=== PATIENT | male | born 1970 | race Caucasian/White ===

== ENCOUNTER 2017-10-08 07:13 | Day surgery (SDC) | payer OTHER ==
[2017-10-06 14:53] VITALS: BMI 27.1
--- NOTE | 2017-10-08 07:05 | HP ---
History & Physical Update - History History: No Change - Physical Physical: No Change - Assessment Assessment: No Change - Plan Plan: No Change (Initial H&P completed on 10/06/17. No new complaints or medications. Here today for elective L4/5 laminectomy.)
[2017-10-08] MEDS ORDERED: CEFAZOLIN 2 GM in DEXTROSE 5%-WATER - 100 ML IVPB ONE (07:28)
[2017-10-08] MEDS ORDERED: oxyCODONE HCL 10 MG SUSTAINED ACTING TABLET PO STA (07:28)
[2017-10-08] MEDS ORDERED: BUPIVACAINE HCL/PF (5 MG/ML) 30 ML VIAL IJ ONE (09:29)
[2017-10-08] MEDS ORDERED: MIDAZOLAM HCL 2 MG/2 ML SINGLE DOSE VIAL ONE ×2 (09:29→11:06)
[2017-10-08] MEDS ORDERED: DEXAMETHASONE SOD PHOSPHATE/PF 10 MG/ML SDV ONE (09:29)
[2017-10-08] MEDS ORDERED: ONDANSETRON 4 MG/2 ML VIAL ONE (10:01)
[2017-10-08] MEDS ORDERED: ceFAZolin SODIUM 1 GM VIAL ONE (10:01)
[2017-10-08] MEDS ORDERED: THROMBIN (BOVINE) 5,000 UNIT VIAL TP ONE ×2 (10:05→11:07)
[2017-10-08] MEDS ORDERED: LIDOCAINE 1%/EPI 1:100000 (20 ML MULTI DOSE VIAL) ONE (10:05)
[2017-10-08] MEDS ORDERED: methylPREDNISolone ACET (DEPO) 40 MG/1 ML VIAL ONE (10:05)
[2017-10-08] MEDS ORDERED: oxyCODONE HCL 5 MG TABLET PO PRN ×2 (11:39)
[2017-10-08] MEDS ORDERED: ONDANSETRON 4 MG/2 ML VIAL IVPUSH PRN (11:39)
[2017-10-08] MEDS ORDERED: LACTATED RINGERS SOLUTION 1,000 ML IV SCH (11:45)
--- NOTE | 2017-10-08 12:28 | OP ---
Operative Note - Note: Operative Date: 10/08/17 Pre-Operative Diagnosis: L4/5 herniated disc, stenosis, radiculopathy Operation: L4/5 discectomy, bilateral laminectomy Post-Operative Diagnosis: Same as Pre-op Surgeon: Goyo Prakash Architectural Examiner: Rashi Núñez Anesthesiologist/BETTING AGENCY COUNTER CLERK: Luz Benjamin Anesthesia: Spinal Specimens Removed: L4/5 disc Estimated Blood Loss (mls): 20 Fluid Volume Replaced (mls): 550 Operative Report Dictated: Yes
--- NOTE | 2017-10-08 12:29 | SURG ---
Surgery Melter Clerk Note Melter Clerk: Rashi Núñez PA-C Date of Service: 10/08/17 Diagnosis: L4/5 herniated disc, spinal stenosis, radiculopathy Procedure: L4/5 discectomy, bilateral laminectomy I was present for the entirety of the operative procedure. For further detail, please refer to operative report. Visit type - Case Type Case Type: Scheduled - New patient This patient is new to me today: Yes Date on this admission: 10/08/17
--- NOTE | 2017-10-08 13:19 | OP ---
DATE OF OPERATION: 10/08/2017 PREOPERATIVE DIAGNOSIS: L4-L5 spinal stenosis. POSTOPERATIVE DIAGNOSIS: L4-L5 spinal stenosis. PROCEDURE PERFORMED: Laminectomy L4-L5. SURGEON: Goyo Prakash MD [employer] [facility] OPERATOR: PAOLO Singleton ESTIMATED BLOOD LOSS: 50 mL. INTRAVENOUS FLUIDS: Per Anesthesia. ANESTHESIA: Spinal/TLIP. COMPLICATIONS: There were none. DISPOSITION: Patient brought to the PACU in stable condition. INDICATIONS FOR SURGERY: The patient is a 47-year-old gentleman who has been suffering from pain from his back down his legs. X-rays and MRI were completed, which noted he had spinal stenosis at L4-L5. He had gone through an exhaustive course of treatment for this which included medications, physical therapy, as well as injections. Unfortunately, his pain continued to persist despite all this. At this point, risks, benefits, and alternatives were discussed, and the patient consented to surgery. OPERATIVE NOTE: Patient was brought to the operating room by the anesthesia staff. After appropriate patient identification was performed, spinal anesthesia was given. A TLIP block was also given. Patient was able to position himself prone onto the OR table. Two needles were placed in his back to akiko off the L4-L5 segment. X-rays taken to confirm this was correct. The needle was removed, and 10 mL of lidocaine with epinephrine was injected into the back at this time. His back was prepped and draped in a sterile manner. At this point, a time-out was completed. An incision was made from the top of L4 down to the bottom of L5. Dissection was carried down to the fascia. The fascia was then split open at this time, and appropriate retractors were then placed in. A spinal needle was placed onto the L4 lamina to akiko off the L4-L5 level. An x-ray was taken to confirm this was correct. The needle was removed at this time, and a microscope was brought in. The interspinous ligament at L4-L5 was removed. Portions of the L4-L5 spinous processes were removed. Portions of the L4-L5 lamina were removed. The segment was identified and removed. Thecal sac was mobilized medially. A disc herniation was noted and removed at this time. Portions of the inferior and superior facets were removed to complete a foraminotomy. By the end of the procedure, the L5 nerve root appeared to be well decompressed. All bleeding was well controlled at this time. Steroids were placed over the nerve root. Floseal was placed over that. The fascia was closed with a No. 1 Vicryl suture. The subcutaneous tissues were closed with 2-0 Vicryl suture. Skin was closed with 3-0 Monocryl suture. Dermabond was applied. Steri-Strips were applied, and sterile dressings applied. Patient was placed supine on the bed and brought to the PACU in stable condition. Janice MEHTA/[id number]
[2017-10-08 13:20] VITALS: TEMP 98
[2017-10-08] MEDS ORDERED: KETOROLAC TROMETHAMINE 30 MG/1 ML VIAL ONE (15:37)
[2017-10-08] MEDS ORDERED: diazePAM 5 MG TABLET ONE (15:58)
[2017-10-08 17:52] VITALS: BP 119/74; PULSE 116
--- NOTE | 2017-10-12 11:55 | PATH ---
Surgical Pathology Report Patient Name: LUISA PORRAS [facility]. Rec. #: [id number] /Age/Gender: 1970 (Age: 47) / M Account: [id number] Location: [facility] Taken: 10/08/2017 Received: 10/08/2017 Reported: 10/12/2017 Physicians: Goyo Prakash M.D. Specimen(s) Received L4-5 DISC Clinical History Spinal stenosis Final Diagnosis DISC, L4-5, LAMINECTOMY: INTERVERTEBRAL DISC TISSUE. Electronically Signed Ena Cummins M.D. Gross Description Received in formalin labeled "L4-5 disc," is a 3.2 x 3.0 x 0.3 cm aggregate of [place] fragments of fibrocartilaginous tissue. A ambulatory service representative portion is submitted in one cassette. /10/09/201710/09/2017
== END 2017-10-08 18:15 | disposition home or self-care (01) ==
LOC: FASU 07:13
PROVIDERS: ATTEND Orthopaedic Surgery Orthopaedic Surgery of the Spine
PROC: 01NB0ZZ Release Lumbar Nerve, Open Approach (ICD-10-PCS; principal; 2017-10-08 11:02)
DX: M48.061 Spinal stenosis, lumbar region without neurogenic claudication (principal)
CPT/HCPCS: 72100-TC-FY; 88304-TC; 94760